=== PATIENT | female | born 1995 | race Two or more races ===

== ENCOUNTER → 2020-03-25 12:16 | Outpatient (CLI) | payer MEDICAID, SELFPAY ==
--- NOTE | 2020-03-25 12:24 | US_ITS ---
STUDY: SECOND AND THIRD TRIMESTER OBSTETRICAL ULTRASOUND - LIMITED REASON FOR EXAM: Female, 24 years old Growth LMP: 11/26/2019 PRIOR ULTRASOUND: None. TECHNIQUE: Transabdominal TECHNICAL QUALITY: Adequate. FINDINGS: There is a single intrauterine fetus. The fetus is in a breech presentation. There is demonstrated cardiac activity with a heart rate of 155 bpm. There is a normal amniotic fluid volume. The largest amniotic fluid pocket measures 4.3 cm.The placenta is anterior in location and is not low lying. There are Grade 0 placental changes. The cervix measures 3 cm in length. BIOMETRY: BPD: 3.8: 17 weeks, 4 days HC: 14.3: 17 weeks, 3 days AC: 12.4: 18 weeks, 0 days FL: 2.3: 16 weeks, 6 days Age by LMP: 17 weeks, 1 days. PROSPER by LMP: 09/01/2020. age by prior US: weeks, days. PROSPER by prior US: . age by current US: 17 weeks, 4 days. PROSPER by current US: 08/29/2020. Estimated weight: 198 grams, +/- 29 grams, 58 percentile. Gender: Male US/OB Limited With Biometrics IMPRESSION: Single live fetus in a breech presentation. survey not performed on this exam. Placenta is grade 0 and is not low-lying. Cervix is closed. age by current US: 17 weeks, 4 days. PROSPER by current US: 08/29/2020. Estimated weight: 198 grams, +/- 29 grams, 58 percentile. Electronically Signed: Krzysztof Vaca MD at 23:51 EST , Service support ,
== END ==
PROVIDERS: Referring Provider Obstetrics & Gynecology; Visit Provider Obstetrics & Gynecology
DX: Z34.90 Encounter for supervision of normal pregnancy, unspecified, unspecified trimester (principal)
CPT/HCPCS: 76816

== ENCOUNTER → 2020-04-16 14:32 | Outpatient (CLI) | payer MEDICAID, SELFPAY ==
[2020-04-10 13:22] VITALS: BMI 24.3
--- NOTE | 2020-04-16 14:33 | US_ITS ---
STUDY: SECOND AND THIRD TRIMESTER OBSTETRICAL ULTRASOUND REASON FOR EXAM: Female, 24 years old. Anatomy screening. LMP: 11/26/2019. TECHNIQUE: Transabdominal TECHNICAL QUALITY: Adequate. PRIOR ULTRASOUND: 03/25/2020 FINDINGS: There is a single intrauterine fetus. The fetus is in a cephalic presentation. There is demonstrated cardiac activity with a heart rate of 142 bpm. There is a normal amniotic fluid volume. The placenta is anterior in location and is not low lying. There are Grade 0 placental changes. The cervix measures 3.28 cm in length. The bilateral adnexal regions are normal. BIOMETRY: BPD: 5.22 cm: 21 weeks, 5 days HC: 18.62 cm: 20 weeks, 6 days AC: 15.63 cm: 20 weeks, 5 days FL: 3.31 cm: 20 weeks, 2 days CI: 81.82 FL/BPD: 63.51 FL/HC: 17.79 FL/AC: 20 1. HC/AC: 1.19 age by current US: 20 weeks, 4 days. PROSPER by current US: 08/30/2020. Estimated weight: 376 grams, +/- 56 grams, 71 %. age by prior US: 20 weeks, 5 days. PROSPER by prior US: 08/29/2020. Age by LMP: 20 weeks, 2 days. PROSPER by LMP: 09/01/2020. ANATOMY: Gender: Male Cranium: Normal lateral ventricles. Normal choroid plexus. Normal cerebellum. Normal cisterna magna. Normal face, nose and lips. Chest: Normal 4-chamber heart. Abdomen/Pelvis: Normal diaphragm. Normal stomach. Normal abdominal wall. Normal cord insertion. Normal 3 vessel cord. Normal kidneys. Normal bladder. Spine: Normal cervical spine. Normal thoracic spine. Normal lumbar spine. Normal sacrum. Extremities: Normal bilateral upper extremities. Normal bilateral lower extremities. US/OB Anatomy Scan IMPRESSION: 1. Live single intrauterine at 20 weeks, 4 days. PROSPER is 08/30/2020. There is adequate interval growth since the prior ultrasound. 2. EFW 376 g. 3. Adequate amniotic fluid. 4. Anterior grade 0 placenta. 5. VERTEX presentation. 6. No visualized anatomic abnormality. Electronically Signed: Bubba Carroll DO at 16:57 EST Tel [phone], Service support ,
== END ==
PROVIDERS: Referring Provider Obstetrics & Gynecology; Visit Provider Obstetrics & Gynecology
DX: O09.92 Supervision of high risk pregnancy, unspecified, second trimester (principal); Z3A.20 20 weeks gestation of pregnancy
CPT/HCPCS: 76805

== ENCOUNTER → 2020-04-26 | Outpatient (CLI) | payer MEDICAID, SELFPAY ==
[2020-04-26 14:29] VITALS: BMI 24.9
[2020-04-26 18:08] LABS: Amphetamine Urine VISTA NEGATIVE (<1000 ng/mL); Barbiturate Urine VISTA NEGATIVE (< 200 ng/mL); Benzodiazepine Urine VISTA NEGATIVE (< 200 ng/mL); Cocaine Urine VISTA NEGATIVE (< 300 ng/mL); Ecstacy Urine VISTA NEGATIVE (< 500 ng/mL); Methadone Urine VISTA NEGATIVE (< 300 ng/mL); PCP Urine VISTA NEGATIVE (< 25 ng/mL); THC Urine VISTA NEGATIVE (< 50 ng/mL); Vista UDS pH Range 6
[2020-04-26 20:35] LABS: Chlamydia Trachomatis by PCR Negative (Negative); Neisserai gonorrhoeae by PCR Negative (Negative); Probe Check PASS; Sample Adequacy Control PASS; Specimen Processing Control PASS
== END | disposition home or self-care (01) ==
LOC: LABSPEC 16:49
PROVIDERS: Visit Provider Obstetrics & Gynecology
DX: O09.90 Supervision of high risk pregnancy, unspecified, unspecified trimester (principal); O26.899 Other specified pregnancy related conditions, unspecified trimester; N89.8 Other specified noninflammatory disorders of vagina
CPT/HCPCS: 80307; 87070; 87205; 87491; 87591